=== PATIENT | male | born 1955 | race Caucasian/White ===

== ENCOUNTER 2023-06-03 02:16 | Inpatient (IN) | payer BC ==
[2023-06-02 10:46] LABS: BASOPHILS # (AUTO) 0.1 K/uL (0.0-0.2); BASOPHILS % (AUTO) 0.6 % (0.0-2.0); EOSINOPHILS # (AUTO) 0.1 K/uL (0.0-0.4); EOSINOPHILS % (AUTO) 0.8 % (0.0-4.0); HEMATOCRIT 43.6 % (36-54); HEMOGLOBIN 15.2 g/dL (14.0-18.0); LYMPHOCYTES # (AUTO) 2.5 K/uL (1.0-5.5); LYMPHOCYTES % (AUTO) 27.1 % (20.5-51.5); MEAN CORPUSCULAR HEMOGLOBIN 30 pg (27-31); MEAN CORPUSCULAR HGB CONC 35 % (32-36); MEAN CORPUSCULAR VOLUME 87 fL (79.0-98.0); MONOCYTES # (AUTO) 0.6 K/uL (0.0-1.0); MONOCYTES % (AUTO) 6.9 % (1.7-9.3); NEUTROPHILS # (AUTO) 5.9 K/uL (1.8-7.7); NEUTROPHILS % (AUTO) 64.6 % (40.0-70.0); PLATELET COUNT (AUTO) 237 K/uL (130-430); RED BLOOD CELL COUNT(AUTO) 5.02 MIL/uL (4.2-6.2); RED CELL DISTRIBUTION WIDTH 13.4 % (9.0-15.0); WHITE BLOOD COUNT (AUTO) 9.2 K/uL (4.8-10.8)
[2023-06-02 11:04] LABS: PROTHROMBIN TIME 10.4 SECS (9.5-12.5)
[2023-06-02 11:11] LABS: CALCIUM 9.5 mg/dL (8.4-11.0); CREATININE 1.11 mg/dL (0.55-1.30); TOTAL BILIRUBIN 0.6 mg/dL (0.0-1.0); TOTAL PROTEIN, SERUM 7.6 g/dL (6.4-8.3)
[2023-06-02 11:15] LABS: HEMOGLOBIN A1C 5.96 % (<5.7)
[2023-06-03] VITALS (7 sets, daily range): BP systolic 125–138; PULSE 72–80; RESP 15–16; TEMP 98; O2SAT 95–97
[~2023-06-03] VITALS: Ht 175.3 cm; Wt 87.1 kg
[2023-06-03] MEDS: CEFAZOLIN SOD 2 GM in D5W 50 ML IV ONE (07:00)
[2023-06-03] MEDS: ACETAMINOPHEN 500 MG TABLET ONE (07:30)
[2023-06-03] MEDS: CELECOXIB 100 MG CAPSULE ONE (07:30)
[2023-06-03] MEDS: SCOPOLAMINE HYDROBROMIDE 1 MG PATCH .72 H (TRANSDERM-SCOP) TD ONE ×2 (07:33→08:03)
[2023-06-03] MEDS: oxyCODONE HCL 10 MG TAB.ER.12H PO ONE ×2 (07:33→10:27)
[2023-06-03] MEDS: GABAPENTIN 300 MG CAPSULE ONE (07:34)
[2023-06-03] MEDS: CELECOXIB 100 MG CAPSULE PO ONE (08:03)
[2023-06-03] MEDS: GABAPENTIN 300 MG CAPSULE PO ONE (08:03)
[2023-06-03] MEDS: ACETAMINOPHEN 500 MG TABLET PO ONE ×2 (08:03→17:14)
[2023-06-03] MEDS: VANCOMYCIN HCL 1,000 MG in NS 250 ML IV ONE (10:15)
[2023-06-03] MEDS: MIDAZOLAM HCL 2 MG/2 ML VIAL (VERSED) ONE (10:30)
[2023-06-03] MEDS: PROPOFOL DRIP 100 ML IV ONE ×3 (10:30→13:38)
[2023-06-03] MEDS ORDERED: VANCOMYCIN HCL 1000 MG/VIAL IV ONE (10:36)
[2023-06-03] MEDS ORDERED: LR 1,000 ML IV.SOLN IV ONE (10:36)
[2023-06-03] MEDS ORDERED: BUPIVACAINE /DEX PF 0.75% SPINAL 2 ML AMP INJ ONE (10:36)
[2023-06-03] MEDS ORDERED: NS IRRIG SOLN 1000 ML IR ONE (10:36)
[2023-06-03] MEDS ORDERED: EPINEPHRINE HCL/PF 1 MG/ML AMP ONE (10:36)
[2023-06-03] MEDS ORDERED: WATER FOR IRRIGATION,STERILE 1,000 ML IRRIG.SOLN IR ONE (10:36)
[2023-06-03] MEDS ORDERED: TRANEXAMIC ACID 1,000 MG/10 ML VIAL ONE (10:36)
[2023-06-03] MEDS ORDERED: ROPIVACAINE HCL/PF 5 MG/ML 0.5% 30 ML VIAL ONE (10:36)
[2023-06-03] MEDS ORDERED: DEXAMETHASONE SOD PHOSPHATE 4 MG/ML VIAL ONE (10:36)
[2023-06-03] MEDS ORDERED: traMADol HCL HCL 50 MG TABLET (ULTRAM) PO PRN (11:00)
[2023-06-03] MEDS ORDERED: HYDROmorphone 1 MG/ML INJ. CARTRIDGE IVP PRN ×4 (11:00→11:15)
[2023-06-03] MEDS ORDERED: oxyCODONE HCL 5 MG TABLET PO PRN ×2 (11:00)
[2023-06-03] MEDS ORDERED: LORATADINE 10 MG TABLET PO PRN (11:00)
[2023-06-03] MEDS ORDERED: NALOXONE HCL 0.4 MG/ML AMP (NARCAN) IVP PRN ×4 (11:15→14:30)
[2023-06-03] MEDS ORDERED: fentaNYL CITRATE/PF 100 MCG/2 ML AMP IVP PRN ×2 (11:15)
[2023-06-03] MEDS: LR 1,000 ML IV ONE (11:15)
[2023-06-03] MEDS ORDERED: ONDANSETRON HCL 4 MG/2 ML VIAL IVP PRN ×2 (11:15→11:45)
[2023-06-03] MEDS: fentaNYL CITRATE/PF 100 MCG/2 ML AMP ONE (12:58)
[2023-06-03] MEDS ORDERED: METOCLOPRAMIDE HCL 10 MG/2 ML VIAL IVP PRN (14:30)
[2023-06-03] MEDS ORDERED: BISACODYL 10 MG/SUPPOSITORY RC PRN (14:30)
[2023-06-03] MEDS ORDERED: LACTULOSE 20 GM/30 ML UDC PO PRN (14:30)
[2023-06-03] MEDS ORDERED: DIPHENHYDRAMINE HCL 25 MG CAPSULE PO PRN (14:30)
[2023-06-03 15:29] LABS: HEMATOCRIT 40.7 % (36-54); HEMOGLOBIN 13.8 g/dL (14.0-18.0); MEAN CORPUSCULAR HEMOGLOBIN 30 pg (27-31); MEAN CORPUSCULAR HGB CONC 34 % (32-36); MEAN CORPUSCULAR VOLUME 87 fL (79.0-98.0); PLATELET COUNT (AUTO) 231 K/uL (130-430); RED BLOOD CELL COUNT(AUTO) 4.68 MIL/uL (4.2-6.2); RED CELL DISTRIBUTION WIDTH 13.5 % (9.0-15.0); WHITE BLOOD COUNT (AUTO) 21.1 K/uL (4.8-10.8)
[2023-06-03] MEDS: KETOROLAC TROMETHAMINE 10 MG TABLET (TORADOL) PO SCH (17:00)
[2023-06-03 17:13] LABS: ATYPICAL LYMPHOCYTES % 3 % (0-0); BAND % (MANUAL) 4 % (0-6); BASOPHILS % (MANUAL) 0 % (0-2); EOSINOPHILS % (MANUAL) 0 % (0-7); LYMPHOCYTES % (MANUAL) 5 % (20-46); MONOCYTES % (MANUAL) 2 % (0-11)
[2023-06-03 17:14] LABS: PLATELET ESTIMATE ADEQUATE (ADEQUATE)
[2023-06-03] MEDS: SENNOSIDES/DOCUSATE SODIUM 1 TAB TABLET(SENOKOT-S) PO SCH (21:18)
[2023-06-03] MEDS: ceFAZolin SODIUM 2 GM in D5W 50 ML IV SCH (21:19)
[2023-06-03] MEDS: ACETAMINOPHEN 500 MG TABLET PO SCH (21:19)
[2023-06-04 00:11] VITALS: BP_SYST 136; PULSE 92; RESP 18; TEMP 97.8; O2SAT 97
[2023-06-04] MEDS: VANCOMYCIN HCL 1 GM/NS PREMIX 250 ML IV ONE (06:17)
[2023-06-04 08:39] LABS: ALBUMIN 3.4 g/dL (3.4-4.8); CREATININE 1.26 mg/dL (0.55-1.30); POTASSIUM 4.4 mmol/L (3.5-5.1); TOTAL BILIRUBIN 1.1 mg/dL (0.0-1.0); TOTAL PROTEIN, SERUM 6.6 g/dL (6.4-8.3)
[2023-06-04 09:26] VITALS: BP_SYST 133; PULSE 80; RESP 16; TEMP 98.8; O2SAT 95
[2023-06-04] MEDS: ASPIRIN 81 MG TAB.CHEW PO SCH (09:41)
[2023-06-04] MEDS: DECADRON 4 MG TABLET PO SCH (09:43)
[2023-06-04 10:57] VITALS: BP_SYST 133; PULSE 95; RESP 16; TEMP 98.8; O2SAT 95
[2023-06-04] MEDS: CELECOXIB 200 MG CAPSULE PO SCH (11:27)
== END 2023-06-04 11:40 | disposition home or self-care (01) | DRG 468 ==
LOC: SMU 06:32
PROVIDERS: ADMIT Student in an Organized Health Care Education/Training Program; ATTEND Student in an Organized Health Care Education/Training Program
PROC: 0SRC0J9 Replacement of Right Knee Joint with Synthetic Substitute, Cemented, Open Approach (ICD-10-PCS; 2023-06-03)
PROC: 0QC Lower Bones, Extirpation (ICD-10-PCS; 2023-06-03)
PROC: 0QCG0ZZ Extirpation of Matter from Right Tibia, Open Approach (ICD-10-PCS; 2023-06-03)
PROC: 0SPC0JZ Removal of Synthetic Substitute from Right Knee Joint, Open Approach (ICD-10-PCS; principal; 2023-06-03 10:36)
DX: T84.032A Mechanical loosening of internal right knee prosthetic joint, initial encounter (principal); Y99.8 Other external cause status; Z79.899 Other long term (current) drug therapy
CPT/HCPCS: 36415; 71046; 73560; 80053; 83037; 85007; 85025; 85027; 85610; 85730; 87081; 96379; 97110-GP; 97116-GP; 97530-GP; C1776; J0171; J0690; J1100; J2704; J3010; J3370; J3465; J3490; J7050; J7060; J7120; J8540; L1830